=== PATIENT | male | born 1965 | race African-American/Black ===

== ENCOUNTER 2019-01-01 09:12 | Emergency (ER) | payer BC ==
[~2019-01-01] VITALS: Ht 172.7 cm; Wt 85.0 kg
[2019-01-01 10:04] LABS: BASOPHILS % 0.5 % (0.0-2.0); EOSINOPHILS % 0.2 % (0.0-5.0); HEMATOCRIT. 45.5 % (42.0-52.0); HEMOGLOBIN. 15.4 g/dL (14.0-18.0); LYMPHOCYTES % 19.5 % (20.0-50.0); MEAN CORPUSCULAR HEMOGLOBIN 29.5 pg (28.0-32.0); MEAN CORPUSCULAR VOLUME 87.4 fL (80.0-94.0); MEAN PLATELET VOLUME 7.3 fl (7.4-10.4); MONOCYTES % 10.8 % (2.0-8.0); PLATELET 249 x1000/uL (130-400); RED BLOOD CELL COUNT 5.21 mill/uL (4.7-6.1); RED CELL DISTRIBUTION WIDTH 13.1 % (11.6-14.6)
[2019-01-01 10:10] LABS: CHLORIDE 106 mEq/L (98-107)
[2019-01-01] MEDS ORDERED: KETOROLAC 30MG/ML VIAL IV ONE (10:30)
[2019-01-01 13:17] VITALS: BP 121/74
== END 2019-01-01 13:29 | disposition home or self-care (01) ==
LOC: ER 09:29
DX: J18.9 Pneumonia, unspecified organism (principal); K50.90 Crohn's disease, unspecified, without complications; Z85.46 Personal history of malignant neoplasm of prostate
CPT/HCPCS: 36415; 71045; 74176; 80053; 83880; 84484; 85025; 93005; 96374; 99284; J1885; Z7610

== ENCOUNTER 2019-05-06 04:53 | Emergency (ER) | payer BC ==
[~2019-05-06] VITALS: Ht 172.7 cm; Wt 77.0 kg
[2019-05-06] MEDS ORDERED: IPRATROPIUM BROMIDE (0.02%) 0.5MG/2.5ML NEB HHN STA (06:58)
[2019-05-06] MEDS ORDERED: ACETAMINOPHEN 325MG TABLET PO STA (06:58)
[2019-05-06] MEDS ORDERED: ALBUTEROL (0.083%) 2.5MG/3ML NEB HHN STA (06:58)
[2019-05-06 07:29] LABS: CLARITY URINE CLEAR (CLEAR); COLOR URINE YELLOW (YELLOW); KETONES URINE NEGATIVE (NEGATIVE); LEUKOCYTE ESTERASE URINE NEGATIVE (NEGATIVE); NITRITE URINE NEGATIVE (NEGATIVE); OCCULT BLOOD URINE TRACE (NEGATIVE); PH URINE 6.5 (4.5-8.0); PROTEIN URINE NEGATIVE (NEGATIVE); SPECIFIC GRAVITY URINE 1.024 (1.005-1.030)
[2019-05-06 09:26] VITALS: BP 122/76
== END 2019-05-06 09:27 | disposition home or self-care (01) ==
LOC: ER 04:53
DX: J18.9 Pneumonia, unspecified organism (principal); R07.89 Other chest pain; Z98.890 Other specified postprocedural states
CPT/HCPCS: 71045; 81003; 94640; 99284; Z7610